=== PATIENT | male | born 2000 | race Caucasian/White ===

== ENCOUNTER 2019-11-18 08:51 | Emergency (ER) | payer OTHER ==
[~2019-11-18] VITALS: Ht 170.2 cm; Wt 65.0 kg
[2019-11-18 08:54] VITALS: BP 122/68
[2019-11-18] MEDS ORDERED: triamcinolone acetonide 40mg/ml inj IM ONE (09:30)
== END 2019-11-18 10:28 | disposition home or self-care (01) ==
LOC: ER 08:51
DX: L23.7 Allergic contact dermatitis due to plants, except food (principal)
CPT/HCPCS: 96372; 99283; J3301